=== PATIENT | male | born 1955 | race Caucasian/White ===

== ENCOUNTER 2016-03-22 16:20 | Emergency (ER) | payer OTHER ==
[2016-03-22] MEDS ORDERED: KETOROLAC 60 MG/2 ML VIAL IM ONE (17:53)
== END 2016-03-22 20:13 | disposition home or self-care (01) ==
LOC: ER 16:20
DX: S83.92XA Sprain of unspecified site of left knee, initial encounter (principal); S80.02XA Contusion of left knee, initial encounter; W10.9XXA Fall (on) (from) unspecified stairs and steps, initial encounter; Y92.008 Other place in unspecified non-institutional (private) residence as the place of occurrence of the external cause; I10 Essential (primary) hypertension; E78.00 Pure hypercholesterolemia, unspecified; Z79.82 Long term (current) use of aspirin; F17.200 Nicotine dependence, unspecified, uncomplicated
CPT/HCPCS: 96372

== ENCOUNTER 2016-03-25 22:54 | Emergency (ER) | payer OTHER ==
[2016-03-25] MEDS ORDERED: KETOROLAC 60 MG/2 ML VIAL IM ONE ×2 (23:22→23:25)
== END 2016-03-25 23:36 | disposition home or self-care (01) ==
LOC: ER 22:54
DX: S83.412A Sprain of medial collateral ligament of left knee, initial encounter (principal); S83.422A Sprain of lateral collateral ligament of left knee, initial encounter; S80.02XA Contusion of left knee, initial encounter; I10 Essential (primary) hypertension; F17.210 Nicotine dependence, cigarettes, uncomplicated; Z79.82 Long term (current) use of aspirin
CPT/HCPCS: 96372

== ENCOUNTER 2016-03-28 12:38 | Emergency (ER) | payer OTHER | END 2016-03-28 17:40 | disposition home or self-care (01) | LOC: ER 12:38 | DX: S00.81XA Abrasion of other part of head, initial encounter (principal); S50.812A Abrasion of left forearm, initial encounter; S50.811A Abrasion of right forearm, initial encounter; S16.1XXA Strain of muscle, fascia and tendon at neck level, initial encounter; V89.2XXA Person injured in unspecified motor-vehicle accident, traffic, initial encounter; Y92.410 Unspecified street and highway as the place of occurrence of the external cause; J01.00 Acute maxillary sinusitis, unspecified; I10 Essential (primary) hypertension; Z79.82 Long term (current) use of aspirin; F17.210 Nicotine dependence, cigarettes, uncomplicated | CPT/HCPCS: 70450; 72125 ==